=== PATIENT | male | born 1985 | race Caucasian/White ===

== ENCOUNTER 2017-03-07 23:24 | Emergency (ER) | payer OTHER ==
[~2017-03-07] VITALS: Ht 175.3 cm; Wt 90.7 kg
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
--- NOTE | 2017-03-07 23:45 | NUR ---
EMT IS AT THE BEDSIDE CLEANING PT'S WOUNDS.
--- NOTE | 2017-03-07 23:45 | NUR ---
PT'S ARRIVED AND IS AT [facility] BEDSIDE.
[2017-03-08] MEDS ORDERED: IBUPROFEN 400 MG TABLET PO ONE
[2017-03-08] MEDS ORDERED: IBUPROFEN 400 MG TABLET ONE (00:01)
[2017-03-08] MEDS ORDERED: TDAP [DIPH/PERTUSSIS/TET] 0.5 ML VIAL IM ONE ×2 (00:01)
--- NOTE | 2017-03-08 00:03 | NUR ---
XRAY DONE AT THE BEDSIDE.
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
[2017-03-08 00:47] VITALS: BP 149/78
--- NOTE | 2017-03-08 00:47 | NUR ---
Patient discharged to home in stable condition. Written and verbal after care instructions given. Patient verbalizes understanding of instruction. PT ambulatory with a steady gait VITAL SIGNS WITHIN NORMAL LIMITS.
== END 2017-03-08 00:58 | disposition home or self-care (01) ==
LOC: ER 23:27 → EDSEX 23:27 → ER 03-08 00:58
DX: S20.219A Contusion of unspecified front wall of thorax, initial encounter (principal); V43.52XA Car driver injured in collision with other type car in traffic accident, initial encounter; Y93.89 Activity, other specified; Y92.488 Other paved roadways as the place of occurrence of the external cause; Y99.8 Other external cause status
CPT/HCPCS: 71010; 90715; 99283; A4606; A6403; Z7610